=== PATIENT | male | born 1985 | race American Indian/Alaskan Native ===

== ENCOUNTER 2018-04-01 04:17 | Emergency (ER) | payer OTHER ==
[2018-04-01] MEDS ORDERED: BOOSTRIX IM ONE (07:08)
[2018-04-01] MEDS ORDERED: TYLENOL PO ONE (07:08)
[2018-04-01] MEDS ORDERED: MOTRIN PO ONE (07:08)
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
--- NOTE | 2018-04-01 08:16 | XRay Report ---
BILATERAL HAND, 3 views: History: Left hypothenar pain, right finger abrasions The bony architecture is intact. Bony alignment is normal. No soft tissue abnormalities are seen. The joint spaces appear preserved. IMPRESSION: Unremarkable bilateral hands.
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
[2018-04-01 09:34] VITALS: BP 102/58
== END 2018-04-01 09:45 | disposition home or self-care (01) ==
LOC: ED 04:17
DX: R51 Headache (principal); M79.642 Pain in left hand; M25.552 Pain in left hip; M25.562 Pain in left knee; M79.652 Pain in left thigh; R07.89 Other chest pain; F17.200 Nicotine dependence, unspecified, uncomplicated
CPT/HCPCS: 70450; 71046; 72170; 90471; 90715